=== PATIENT | male | born 1980 | race Hispanic/Latino ===

== ENCOUNTER 2018-06-10 16:49 | Emergency (ER) | payer OTHER ==
[~2018-06-10] VITALS: Ht 180.3 cm; Wt 95.3 kg
[2018-06-10] MEDS ORDERED: LIDOCAINE HCL 1% LOCAL INJ 20 ML VIAL INJ ONE (17:00)
== END 2018-06-10 17:11 | disposition home or self-care (01) ==
LOC: ER 16:49
DX: S63.296A Dislocation of distal interphalangeal joint of right little finger, initial encounter (principal); W01.0XXA Fall on same level from slipping, tripping and stumbling without subsequent striking against object, initial encounter; Y99.0 Civilian activity done for income or pay
CPT/HCPCS: 99282